=== PATIENT | female | born 1990 | race Asian ===

== ENCOUNTER 2017-02-11 11:15 | Inpatient (IN) | payer SELFPAY ==
[~2017-02-11] VITALS: Ht 158 cm; Wt 61.2 kg
[2017-02-11] MEDS ORDERED: LACTATED RINGERS 1,000 ML IV SCH (12:12)
[2017-02-11] MEDS ORDERED: METHYLERGONOVINE 0.2 MG/ML AMP IM PRN ×2 (12:15→20:35)
[2017-02-11] MEDS ORDERED: AMPICILLIN 2,000 MG in NACL 0.9% MINI-BAG PLUS 100 ML IV SCH (12:15)
[2017-02-11] MEDS ORDERED: PROMETHAZINE 25 MG/ML VIAL IVP PRN (12:15)
[2017-02-11] MEDS ORDERED: OXYTOCIN 10 UNITS/ML VIAL IM SCH (12:15)
[2017-02-11] MEDS ORDERED: CARBOPROST 250 MCG/ML AMP IM PRN (12:15)
[2017-02-11] MEDS ORDERED: NALBUPHINE HYDROCHLORIDE 10 MG/ML VIAL IVP PRN (12:15)
[2017-02-11 12:35] LABS: BASOPHILS # (AUTO) 0.1 K/uL (0.00-0.22); BASOPHILS % (AUTO) 1.1 % (0.0-2.0); EOSINOPHILS # (AUTO) 0.1 K/uL (0-0.4); EOSINOPHILS % (AUTO) 1.9 % (0.0-4.0); HEMATOCRIT 36.7 % (36-48); HEMOGLOBIN 12.2 g/dL (12.0-16.0); LYMPHOCYTES # (AUTO) 1.2 K/uL (2.5-16.5); LYMPHOCYTES % (AUTO) 18.2 % (20.5-51.1); MEAN CORPUSCULAR HEMOGLOBIN 32 pg (27-31); MEAN CORPUSCULAR HGB CONC 33 g/dL (33-37); MEAN CORPUSCULAR VOLUME 95 fL (80-94); MONOCYTES # (AUTO) 0.4 K/uL (0.8-1.0); MONOCYTES % (AUTO) 5.5 % (1.7-9.3); NEUTROPHILS # (AUTO) 4.9 K/uL (1.8-7.7); NEUTROPHILS % (AUTO) 73.3 % (42.2-75.2); PLATELET COUNT (AUTO) 146 K/uL (140-450); RED BLOOD CELL COUNT(AUTO) 3.87 MIL/uL (4.20-5.40); RED CELL DISTRIBUTION WIDTH 12.1 % (11.6-13.7); WHITE BLOOD COUNT (AUTO) 6.7 K/uL (4.8-10.8)
[2017-02-11 12:42] LABS: APPEARANCE,URINE SL CLOUDY (CLEAR); BILIRUBIN,URINE NEGATIVE (NEGATIVE); BLOOD, URINE 3+ (NEGATIVE); LEUKOCYTE ESTERASE ,URINE NEGATIVE (NEGATIVE); NITRITE, URINE NEGATIVE (NEGATIVE); PROTEIN,URINE TRACE (NEGATIVE); UGLUCOSE NEGATIVE (NEGATIVE); UROBILINOGEN,URINE 0.2 EU/dL (0.2 - 1)
[2017-02-11 12:47] VITALS: BP 137/90
[2017-02-11 12:52] LABS: ANION GAP 12.5 (8-16); CALCIUM 8.8 mg/dL (8.5-10.1); CARBON DIOXIDE 24.6 mmol/L (21-32); CREATININE 0.7 mg/dL (0.6-1.3); POTASSIUM 4.1 mmol/L (3.5-5.1)
[2017-02-11 12:57] LABS: ALBUMIN 2.5 g/dL (3.4-5.0); TOTAL BILIRUBIN 0.2 mg/dL (0.0-1.0); TOTAL PROTEIN, SERUM 6.6 g/dL (6.4-8.2)
[2017-02-11 13:12] LABS: COLOR,URINE ORANGE (YELLOW)
[2017-02-11 13:14] LABS: BACTERIA,URINE 1+ /HPF (None Seen); MUCUS,URINE 1+ /LPF (None Seen)
[2017-02-11 13:15] LABS: RBC,URINE 20-50 /HPF (0-5); WBC,URINE 0-5 (RARE) /HPF (0-5)
[2017-02-11 13:27] LABS: HIV RAPID SCREEN NON-REACTIVE (NON REACTIV)
[2017-02-11] MEDS ORDERED: OXYTOCIN 20 UNITS/LR PREMIX 1,000 ML IV ONE (14:28)
[2017-02-11] MEDS ORDERED: ROPIVACAINE 0.2%/NS PREMIX 250 ML EPI ONE (15:42)
[2017-02-11] MEDS ORDERED: AMPICILLIN 1,000 MG in NACL 0.9% MINI-BAG PLUS 50 ML IV SCH (16:00)
[2017-02-11] MEDS ORDERED: fentaNYL 0.05 MG/ML VIAL ONE (16:10)
[2017-02-11] MEDS ORDERED: AMPICILLIN 2,000 MG VIAL ONE (16:13)
[2017-02-11] MEDS ORDERED: OXYTOCIN 10 UNITS/ML VIAL ONE (18:29)
[2017-02-11] MEDS ORDERED: IBUPROFEN 800 MG TAB PO PRN (20:35)
[2017-02-11] MEDS ORDERED: OXYTOCIN 10 UNITS/ML VIAL IM PRN (20:35)
[2017-02-11] MEDS ORDERED: oxyCODONE/APAP 5/325 MG 1 TAB TAB PO PRN (20:35)
[2017-02-11] MEDS ORDERED: WITCH HAZEL 40 PAD PACKAGE TP PRN (20:35)
[2017-02-11] MEDS ORDERED: BENZOCAINE/MENTHOL 20%-0.5% 60 GM CAN TP PRN (20:35)
[2017-02-11] MEDS ORDERED: HYDROcodone/APAP 5/325 MG 1 TAB TAB PO PRN (20:35)
[2017-02-11] MEDS ORDERED: TEMAZEPAM 15 MG CAP PO PRN (20:35)
[2017-02-11] MEDS ORDERED: DOCUSATE SOD/SENNA 50/8.6 MG 1 TAB PO SCH (21:00)
[2017-02-11] MEDS ORDERED: OXYTOCIN 20 UNITS/LR PREMIX 1,000 ML IV SCH (22:00)
[2017-02-12 07:20] LABS: HEMOGLOBIN 11.1 g/dL (12.0-16.0)
[2017-02-12 07:38] LABS: HEMATOCRIT 33.9 % (36-48)
--- NOTE | 2017-02-12 07:45 | NUR ---
PATIENT HAS BEEN SCREENED AND CATEGORIZED LOW RISK. PATIENT WILL BE SEEN WITHIN 7 DAYS OF ADMISSION. 02/18/[address]
[2017-02-13 13:47] LABS: RAPID PLASMA REAGIN NON-REACTIVE (Non Reactiv)
== END 2017-02-13 14:20 | disposition home or self-care (01) | DRG 775 ==
LOC: MLD 11:15 → MFCC 23:40
PROVIDERS: ADMIT Obstetrics & Gynecology; ATTEND Obstetrics & Gynecology
PROC: 10E0XZZ Delivery of Products of Conception, External Approach (ICD-10-PCS; principal; 2017-02-11)
PROC: 0KQM0ZZ Repair Perineum Muscle, Open Approach (ICD-10-PCS; 2017-02-11)
PROC: 00HU33Z Insertion of Infusion Device into Spinal Canal, Percutaneous Approach (ICD-10-PCS; 2017-02-11)
PROC: 3E0R3CZ (ICD-10-PCS; 2017-02-11)
PROC: 3E0234Z Introduction of Serum, Toxoid and Vaccine into Muscle, Percutaneous Approach (ICD-10-PCS; 2017-02-12)
DX: O70.1 Second degree perineal laceration during delivery (principal); Z37.0 Single live birth; O89.4 Spinal and epidural anesthesia-induced headache during the puerperium; Z3A.39 39 weeks gestation of pregnancy; Z23 Encounter for immunization
CPT/HCPCS: 36415; 51702; 59409; 80053; 81001; 85018; 85025; 86592; 86886; 86900; 86901; 90715; J0290; J2590; J2795; J3010